=== PATIENT | female | born 1990 | race African-American/Black ===

== ENCOUNTER 2016-05-05 09:18 | Emergency (ER) | payer OTHER | END 2016-05-05 13:38 | disposition home or self-care (01) | LOC: ER 09:18 | DX: S06.0X9A Concussion with loss of consciousness of unspecified duration, initial encounter (principal); V49.49XA Driver injured in collision with other motor vehicles in traffic accident, initial encounter; Y92.410 Unspecified street and highway as the place of occurrence of the external cause; G40.309 Generalized idiopathic epilepsy and epileptic syndromes, not intractable, without status epilepticus | CPT/HCPCS: 36415; 70450; 71010; 80053; 81001; 82947; 84703; 85025; 87077; 87088; 87186 ==